=== PATIENT | male | born 1985 | race Caucasian/White ===

== ENCOUNTER 2024-08-29 15:27 | Emergency (ER) | payer OTHER, SELFPAY ==
--- OUTSIDE RECORDS SUMMARY | 2014-07-24 05:15 | XMS_ITS | Continuity of Care Document ---
Author Organization [facility] Address [address] [facility] [place] [address] Care Team Providers Care Dye Beck Reel Operator Name Role Phone Unavailable Unavailable Unavailable Allergies, Adverse Reactions, Alerts Substance Reaction Status Criticality No Known Allergies Active No Inform ation Medications Medication Instructions Dosage Effective Dates (start - stop) Status Comments albuterol sulfate HFA 90 mcg/actuation aerosol inhaler inhale 2 puff by inhalation route every 4 - 6 hours as needed - Active Advance Directives Directive Yes / No Effective Date File Name No Information Encounters Encounter Description Practice Location Reason(s) For Visit Diagnoses Date Provider Providers Copied on Encounter [facility] , [address] [place], [place], [phone], [facility] No Information 5 No Information Family History Family Member Type Diagnosis Age At Onset No Information Payers Payer name Insurance type Covered constitution party ID Authoriza tion(s) No Information Social History Type Description Quantity Date Captured Comments Alcohol Use Details No Caffeine Use Details Unknown Tobacco Use Status No Information Smoking Status No Information Sex Male Vital Signs Date / Time: Height Weight BMI Pulse Rate Blood Pressure Temperature Respiratory Rate Body Surface Area Head Circumference Head Circ. Percentile Wt./Bryan. Percentile BMI percentile Pulse Ox Inhaled Ox 10:16 AM 79 /min 151/101 mm[Hg] 98.70 F 16 /min 98 % Chief Complaint And Reason For Visit No Information Reason For Referral Reason For Referral No Information History Of Present Illness Encounter Date Complaint History Of Prese nt Illness No Information Functional Status Date Functional Assessmen t No Information Instructions Date Instruction Additional Infor mation No Information Assessments Type Assessment Date No Information Patient Care Teams Name Effective Dates (start - stop) Status Members No Information
--- OUTSIDE RECORDS SUMMARY | 2024-08-24 12:05 | XMS_ITS | Encounter Summary ---
Author Organization [facility] Address [address] [place] [address]. [place] [address] Phone Care Team Providers Care Bobcat Driver/Labor Name Role Phone Pcp, No Primary Care Provider Unavailabl e Reason for Visit * Reason Comments Fall Leg Injury Encounter Details Date Type Department Care Team (Late st Contact Info) Description 08/24/2024 12:05 PM CDT - 08/24/2024 3:04 PM CDT Emergency [facility] [place] [address] [place] [address] [id number] [place], [place] [id number] So Shipley MD [address] [place], [place] [id number] Laceration of left lower extremity, initial encounter Discharge Disposition: Discharged to home or self care Social History Tobacco Use Types Packs/Day Years Used Date Smoking Tobacco: Never Assessed Sex and Gender Information Value Date Recorded Sex Assigned at Not on file 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 Gender Identity Not on file Sexual Orientation Not on file Primary [place] Affiliation No [place] Affiliation documented as of this encounter Last Filed Vital Signs Vital Sign Reading Time Taken Comments Blood Pressure 142/74 08/24/2024 2:20 PM CDT Pulse 75 08/24/2024 2:20 PM CDT Temperature 36.4 C (97.6 F) 08/24/2024 12:09 PM CDT Respiratory Rate 18 08/24/2024 12:09 PM CDT Oxygen Saturation 95% 08/24/2024 2:20 PM CDT Inhaled Oxygen Concentration - - Weight - - Height - - Body Mass Index - - documented in this encounter Discharge Instructions * Discharge Instructions* Melissa Argueta MD - 08/24/2024 2:06 PM CDT You had a cut (laceration) repaired in the Emergency Department with 9 stitches. Please try to keep the wound clean and dry. For the next 2 days try to keep the wound covered with gauze or a bandage. You may apply antibacterial ointment such as bacitracin or neosporin if you want. You may shower and let water run over the wound, but try not to soak the wound in water, a bath tubs, hot tubs, or pool. Return for suture removal in 10-14 days. Return sooner if you notice increasing redness, pain, swelling, drainage, or if you have any fevers. These could be signs of an infection and you may need antibiotics. We made sure you are up to date on your tetanus immunization Your scar will continue to heal over the next 12 months, so be sure to cover your scar with sunscreen when outside during this time to improve healing. documented in this encounter Medications at Time of Discharge bacitracin zinc 500 unit/g externally ointment Please apply to wound with dressing changes. 28 g 08/24/2024 3:10 PM CDT 08/24/2024 acetaminophen (TYLENOL) 325 mg oral tablet Take 1-2 tablets (325-650 mg) by mouth every 4 hours as needed for Moderate Pain. 30 tablet 08/24/2024 3:10 PM CDT 08/24/2024 beclomethasone (QVAR) 80 mcg/act inhalation aerosol soln 1-2 Puffs by Inhalation route twice daily. 1 0 01/19/2008 albuterol (PROVENTIL;BRIANNA MEHREEN) 90 mcg/puff inhalation aerosol soln 1-2 Puffs by Inhalation route four times daily. 1 0 01/19/2008 oxyCODONE (ROXICODONE) 5 mg oral tablet Take 1 tablet (5 mg) by mouth every 4 hours as needed for Pain. 6 tablet 08/24/2024 3:10 PM CDT 08/24/2024 5 documented as of this encounter Procedure Notes * Angy Piper MD - 08/24/2024 2:05 PM CDTAssociated Order(s): Laceration Repair Laceration Repair Performed by: Angy Piper MD Authorized by: So Shipley MD Consent: Consent obtained: Verbal Consent given by: Patient Risks discussed: Infection, pain, need for additional repair, poor wound healing, poor cosmetic result and retained foreign body [place] protocol: Procedure explained and questions answered to patient or proxy's satisfaction: yes Test results available: yes Imaging studies available: yes Site/side marked: yes Immediately prior to procedure, a time out was called: yes Patient identity confirmed: Verbally with patient Anesthesia: Anesthesia method: Local infiltration Local anesthetic: Lidocaine 1% WITH epi (20ml) Laceration details: Location: Leg Leg location: L upper leg Length (cm): 12 Depth (mm): 15 Pre-procedure details: Preparation: Imaging obtained to evaluate for foreign bodies Exploration: Hemostasis achieved with: Direct pressure and epinephrine Imaging outcome: foreign body not noted Wound exploration: wound explored through full range of motion Wound extent: fascia violated Wound extent: no nerve damage noted, no tendon damage noted, no underlying fracture noted and no vascular damage noted Contaminated: yes Treatment: Amount of cleaning: Extensive Irrigation solution: Sterile saline Irrigation volume: 1L Irrigation method: Pressure wash Debridement: Minimal Layers/structures repaired: Deep subcutaneous Deep subcutaneous: Suture size: 2-0 Suture material: Vicryl Suture technique: Horizontal mattress Number of sutures: 2 Skin repair: Repair method: Sutures Suture size: 3-0 Suture material: Nylon Suture technique: Simple interrupted Number of sutures: 9 Approximation: Approximation: Loose Repair type: Repair type: Intermediate Post-procedure details: Dressing: Antibiotic ointment and adhesive bandage Procedure completion: Tolerated well, no immediate complications Angy Piper MD, 08/24/2024 2:04 PM Cosigned by So Shipley MD at 08/24/2024 4:04 PM CDT Associated attestation - So Shipley MD - 08/24/2024 4:04 PM CDT My signature attests that I was present for the carranza or critical portion of this procedure. I was immediately available or had arranged immediate staff availability for all the non-critical or non-keyportions of the entire procedure. So Shipley MD, 08/24/2024 4:04 PM documented in this encounter ED Notes * Latonya Mayes RN - 08/24/2024 3:00 PM CDT Patient discharged via ambulatory to home accompanied by . All discharge instructions includingnew medications and follow up appointments discussed with patient and verbalized understanding. * Melissa Argueta MD - 08/24/2024 12:09 PM CDT Images from the original note were not included. ED Provider Note Name: Feroz Boothe : 1985 Sex: male Patient Arrival Date and Time: 08/24/2024 12:05 PM TRIAGE NOTE Feroz Boothe presented to the emergency department with mechanical fall onto rebar. Openwound to L thigh. EMS states pt is vitally stable, received fentanyl. HPI Feroz Boothe is a 39 y.o. male with a PMHx of GERD, asthma, and lung abscess/empyema whopresented to the emergency department after a fall onto a rebar resulting in a penetrating injury to the L lateral thigh. He reports he was at work and fell into a pit with rebar sticking out, landedon the rebar and it held up his weight until he was pulled back up. Otherwise feels well, fentanyl given when with EMS. Patient is unsure when he got his last tetanus shot. No numbness or tingling orsensory changes. He feels comfortable for now and has no other concerns or symptoms. ROS Negative unless otherwise stated in HPI SOCIAL HISTORY EtOH: none reported Tobacco: none reported Drug use: none reported PHYSICAL EXAM BP 134/90 (Cuff Location: Left Arm, Patient Position: Lying Down) Pulse 57 Temp 36.4 ??C (97.6 ??F) Resp 18 SpO2 95% General: Laying in bed, no acute distress Neuro: Awake and alert. Sensation intact and symmetric in bilateral lower extremities. Can move toes in both feet Cardiac: Normal rate, normotensive, no murmurs, rubs, or gallops. DP pulses intact to palpation bilaterally Respiratory: No acute respiratory distress, saturating well on room air GI: Abdomen soft, non-tender, non-distended, non-peritonitic. MSK: ~15-20cm deep open wound to L thigh, dressing covering with no strikethrough MDM / ED Course ED Course as of 08/24/24 1317 TueAugust 24, 2024 1316 Tetanus booster ordered. XR obtained with no evidence of debris. Planning to wash out and close wound. Patient presents with acute open L lateral thigh wound (photo above). Pulses intact, motor and sensory function normal. Patient was unsure when his last Tetanus booster was, so Tetanus booster was given. His wound was thoroughly washed and sutured (please see separate procedure note). It was closedwith 9 sutures which will need to be removed in 10-14 days. Discussed return precautions with patient. Answered all questions. Patient sent with bacitracin and gauze/tape for daily dressing changes. Work note provided. DISPOSITION Patient was determine to be safe for discharge. Return to ED precautions discussed. 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 Denies hitting his head or back, denies LOC and does not take any blood thinners. documented in this encounter Miscellaneous Notes * ED Faculty Note - So Shipley MD - 08/24/2024 12:08 PM CDT Images from the original note were not included. ED Faculty Attestation and Note Feroz Boothe : 1985 Sex: male Patient Arrival Date and Time: 08/24/2024 12:05 PM FACULTY ATTESTATION I So Shipley MD, personally saw the patient, performed critical or carranza portions of the service, and discussed the care with the resident MDM / ED Course Feroz Boothe presented to the emergency department with mechanical fall onto rebar. Openwound to L thigh. EMS states pt is vitally stable, received fentanyl. On exam, large penetrating wound to lateral L thigh. No active bleeding. There is no exam findings to suggest neurovascular injury. Pt has full leg ROM. Wound is not near joint. X-ray obtained and neg for fracture or FB. [place]ough[place] out of leg performed. Considered risk/benefit of closure of wound. Given wound is gaping and large, we felt benefit of loose closure outweighed risk of infection. Discussed signs of infection. Given pain control and bacitracin prescriptions for home. Pt will follow up for suture removal. He was ambulatory at time of discharge. ED Course as of 08/24/24 1538 TueAugust 24, 2024 1340 No FB or fracture on my review of femur Xray IMPRESSION 1. Laceration of left lower extremity, initial encounter So Shipley MD, 08/24/2024 3:38 PM documented in this encounter Plan of Treatment Not on file documented as of this encounter Procedures Procedure Name Priority Date/Time Associated Diagnosis Comments LACERATION REPAIR Routine 08/24/2024 2:0 5 PM CDT XR FEMUR LEFT AP + LAT* Routine 08/24/2024 1:01 PM CDT documented in this encounter Results * Laceration Repair (08/24/2024 2:05 PM CDT) Narrative So Shipley MD - 08/24/2024 2:05 PM CDT So Shipley MD 08/24/2024 4:04 PM Laceration Repair Performed by: Angy Piper MD Authorized by: So Shipley MD Consent: Consent obtained: Verbal Consent given by: Patient Risks discussed: Infection, pain, need for additional repair, poor wound healing, poor cosmetic result and retained foreign body [place] protocol: Procedure explained and questions answered to patient or proxy's satisfaction: yes Test results available: yes Imaging studies available: yes Site/side marked: yes Immediately prior to procedure, a time out was called: yes Patient identity confirmed: Verbally with patient Anesthesia: Anesthesia method: Local infiltration Local anesthetic: Lidocaine 1% WITH epi (20ml) Laceration details: Location: Leg Leg location: L upper leg Length (cm): 12 Depth (mm): 15 Pre-procedure details: Preparation: Imaging obtained to evaluate for foreign bodies Exploration: Hemostasis achieved with: Direct pressure and epinephrine Imaging outcome: foreign body not noted Wound exploration: wound explored through full range of motion Wound extent: fascia violated Wound extent: no nerve damage noted, no tendon damage noted, no underlying fracture noted and no vascular damage noted Contaminated: yes Treatment: Amount of cleaning: Extensive Irrigation solution: Sterile saline Irrigation volume: 1L Irrigation method: Pressure wash Debridement: Minimal Layers/structures repaired: Deep subcutaneous Deep subcutaneous: Suture size: 2-0 Suture material: Vicryl Suture technique: Horizontal mattress Number of sutures: 2 Skin repair: Repair method: Sutures Suture size: 3-0 Suture material: Nylon Suture technique: Simple interrupted Number of sutures: 9 Approximation: Approximation: Loose Repair type: Repair type: Intermediate Post-procedure details: Dressing: Antibiotic ointment and adhesive bandage Procedure completion: Tolerated well, no immediate complications So Shipley MD PROCEDURES Final Result * XR FEMUR LEFT AP + LAT* (08/24/2024 1:01 PM CDT) Anatomical Region Laterality Modality Upper Leg Computed Radiogr aphy 08/24/2024 1:02 PM CDT Impressions 08/24/2024 1:03 PM CDT Impression: Soft tissue injury. No fracture or radiopaque foreign body. Reading Radiologist: Amilcar Stark 08/24/2024 1:03 PM CDT Technique: XR FEMUR LEFT AP + LAT* Indication: open wound from rebar, check for debris Comparison: None Findings: No fracture or subluxation. No radiopaque foreign body. Mild degenerative changes in the left knee. There is a large soft tissue wound in the mid thigh. This is best seen on the lateral view. Procedure Note Amilcar Stark MBBS - 08/24/2024 Technique: XR FEMUR LEFT AP + LAT* Indication: open wound from rebar, check for debris Comparison: None Findings: No fracture or subluxation. No radiopaque foreign body. Milddegenerative changes in the left knee. There is a large soft tissue wound in the mid thigh. This is best seen onthe lateral view. IMPRESSION Impression: Soft tissue injury. No fracture or radiopaque foreign body. Reading Radiologist: Amilcar Stark us So Shipley MD RAD XRAY Final Result documented in this encounter Visit Diagnoses Diagnosis Laceration of left lower extremity, initial encounter- Primary documented in this encounter Administered Medications Inactive Administered Medications - up to 3 most recent administrations Medication Order MAR Action Action Date Dose Rate Site HYDROmorphone PF (DILAUDID) 1 mg/mL injection 0.5 mg 0.5 mg, IV Push, ONE TIME, 1 dose, On Tue08/24/24 at 1310 Given 08/24/2024 1:13 PM CDT 0.5 mg documented in this encounter Active and Recently Administered Medications Times are shown in CDT. Scheduled Medication Order 08/22/2024 08/23/2024 08/24/2024 HYDROmorphone PF (DILAUDID) 1 mg/mL injection 0.5 mg (COMPLETED) 0.5 mg, IV Push, ONE TIME, 1 dose, On Tue08/24/24 at 1310 1313 (Given - Provid er: Latonya Mayes RN) documented in this encounter Care Teams Bobcat Driver/Labor Relationship Specialty Start Date End Date Pcp, [place] [address] PCP - General 01/19/08 documented as of this encounter
[2024-08-29 15:51] VITALS: BP 162/107; PULSE 70; RESP 20; TEMP 35.9; O2SAT 98; BMI 40.0
--- NOTE | 2024-08-29 16:27 | ED.GENADULT ---
HPI - General Adult General Chief complaint: Extremity Pain/Injury, Lower Stated complaint: L leg infection Time Seen by Provider: 08/29/24 16:26 History of Present Illness HPI narrative: Pt reports last Tuesday fell through a hole at work, impaled leg on rebar through Left thigh. Was treated at [facility] [place]. Took bandage off today, noted green purulent discharge on bandage and oozing from wound. Concerned of infection. Pain worse in this area earlier felt like ripping. Pain currently 10/04. 39-year-old man presenting to the emergency department with concern of infection in his left thigh. Seen 5 days ago at [facility] following an injury at work where he was impaled by a piece of rebar in his left thigh. Removing the bandage today noting some green discharge in concerned about infection. Increasing pain as well. No fever. Does need more for pain than ibuprofen or acetaminophen; had been initially treated with Percocet. Related Data Home Medications ?Medication ?Instructions ?Recorded ?Confirmed albuterol sulfate PO 08/29/24 fluticasone propion-salmeterol inhalation 08/29/24 Allergies Allergy/AdvReac Type Severity Reaction Status Date / Time No Known Drug Allergies Allergy Verified 08/29/24 15:55 Review of Systems Status of ROS: Reports: 6 or more systems reviewed and unremarkable except as noted in History and below [facility] Social History Non-prescribed substance use: denies use Exam Narrative: Exam Narrative: Pleasant. NAD. Well muscled. Is not tachycardic. Blood pressure little bit elevated noted on initial vitals. Examination left thigh in question does show large v-shaped laceration partially through some tattoo in the area. There is mild erythema along the wound edges. He is sensitive to touch here. On the dressing that they have along it as light greenish yellow discharge. I do not appreciate any fluid collection or indication of abscess otherwise. Const: Vital Signs, click to edit/add: Vital Signs - 24 hr 08/29/24 15:51 Temperature 96.7 F L Pulse Rate [Pulse Oximeter] 70 Respiratory Rate 20 Blood Pressure [Ri ght Upper Arm] 162/107 H Pulse Oximetry 98 Oxygen Delivery Me thod Room Air Documenting provider has reviewed patient's vital signs: yes Course Vital Signs Vital signs: Initial Vital Signs Temperature 96.7 F L 08/29/24 15:51 Temperature Source Temporal Artery Scan 08/29/24 15:51 Pulse Rate 70 08/29/24 15:51 Respiratory Rate 20 08/29/24 15:51 Blood Pressure 162/107 H 08/29/24 15:51 Blood Pressure Mean 125 H 08/29/24 15:51 Blood Pressure Position Sitting 08/29/24 15:51 Pulse Oximetry 98 08/29/24 15:51 Oxygen Delivery Method Room Air 08/29/24 15:51 Vital Signs Temperature 96.7 F L 08/29/24 15:51 Pulse Rate 70 08/29/24 15:51 Respiratory Rate 20 08/29/24 15:51 Blood Pressure 162/107 H 08/29/24 15:51 Pulse Oximetry 98 08/29/24 15:51 Oxygen Delivery Method Room Air 08/29/24 15:51 Temperature 96.7 F L 08/29/24 15:51 Pulse Rate 70 08/29/24 15:51 Respiratory Rate 20 08/29/24 15:51 Blood Pressure 162/107 H 08/29/24 15:51 Pulse Oximetry 98 08/29/24 15:51 Oxygen Delivery Method Room Air 08/29/24 15:51 Medications Administered Medications: Discontinued Medications Generic Name Dose Route Start Last Admin Trade Name Kalebq PRN Reason Stop Dose Admin Ceftriaxone Sodium 1 gm/ 100 mls @ 200 mls/hr 08/29/24 16:44 08/29/24 17:46 Sodium Chloride IVPB 08/29/24 16:45 Infused ONCE ONE Infusion Ketorolac Tromethamine 30 mg 08/29/24 17:10 08/29/24 17:18 Ketorolac 30 Mg/Ml Inj IVP 08/29/24 17:11 30 mg ONCE ONE Administration Medical Decision Making MDM Narrative Medical decision making narrative: Does seem to have some localized inflammatory reaction. I am not convinced that the drainage represents marked infectious change. Perhaps increase in pain is more concerning. Will check labs for baseline in case this gets much worse. Anticipate covering with antibiotics though regardless. This is a large wound and he is quite worried about getting an infection here. White count is not elevated nor is CRP. Did give ketorolac and a g of Rocephin in the emergency department. See patient discharge plan for further discussion Stay well-hydrated. Watch for marked spread of this redness, marked swelling or significant increase in pain, fever. Your received a dose of Rocephin here in the emergency department. Your labs looked good. Initiating continued course of cephalexin as an antibiotic and also from [facility] per discussion some [place] if needed. Lab Data Lab results reviewed: Yes I reviewed the patient's lab results Labs: Lab Results 08/29/24 Range/Units 17:14 WBC 9.17 (4.50-11.00) K/uL RBC 4.91 (4.30-5.90) m/uL Hgb 14.4 (13.5-17.5) gm/dL Hct 43.9 (37.0-53.0) % MCV 89 (80-100) fL MCH 29 (26-34) pg MCHC 33 (32-36) gm/dL RDW Coeff of [place] 11.7 (11.5-15.5) % Plt Count 295 (140-440) K/uL Neut % (Auto) 57.2 (42.0-72.0) % Lymph % (Auto) 23.2 (20-44) % Dillon % (Auto) 13.6 H (0.0-11.0) % Eos % (Auto) 4.6 (0.0-7.0) % Baso % (Auto) 0.5 (0.0-3.0) % Neut # (Auto) 5.24 (1.7-7.0) K/uL Lymph # (Auto) 2.13 (0.90-2.90) K/uL Dillon # (Auto) 1.20 H (0.00-0.90) K/UL Eos # (Auto) 0.42 (0.00-0.50) K/uL Baso # (Auto) 0.05 (0.00-0.30) K/uL Abs Immat Gran (auto) 0.08 (0.00-0.30) K/uL Imm/Tot Granulo (auto) 0.9 % C-Reactive Protein 0.9 (0.5-1.0) mg/dL Discharge Plan Discharge Clinical Impression: Visit for wound check Patient Disposition: Home w/ Parent or Adult Condition: Stable Additional Instructions: Stay well-hydrated. Watch for marked spread of this redness, marked swelling or significant increase in pain, fever. Your received a dose of Rocephin here in the emergency department. Your labs looked good. Initiating continued course of cephalexin as an antibiotic and also from [facility] per discussion some [place] if needed. Prescriptions: No Action albuterol sulfate PO fluticasone propion-salmeterol [Advair Diskus] inhalation Follow Up/Referrals: Provider,Not a Local [Primary Care Provider, Family Practice] Stand Alone Forms: [employer] Info Instructions
[2024-08-29] MEDS: cefTRIAXone 1 GM in 0.9 % SODIUM CHLORIDE Mini-bag 100 ML IVPB (16:58)
--- OUTSIDE RECORDS SUMMARY | 2024-08-29 17:02 | XMS_ITS | Encounter Summary ---
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
--- OUTSIDE RECORDS SUMMARY | 2024-08-29 17:02 | XMS_ITS | Clinical Summary ---
Author Organization [facility] Address [address] [place], [place] [address] [address] Phone Care Team Providers Care Institutional Asset Manager Name Role Phone Pcp, No Primary Care Provider Unavailabl e Source Comments [employer] is fully rolled out on [employer]. Last update 08/30/08.[facility] Allergies No known active allergies Medications * This document contains information received from the source organization and may not represent a complete record from that organization. * Be aware that medications may not be up to date as of this document. Always verify current medications with patient. beclomethasone (QVAR) 80 mcg/act inhalation aerosol soln 1-2 Puffs by Inhalation route twice daily. 1 0 8 Active albuterol (PROVENTIL;VENT DEMETRIA) 90 mcg/puff inhalation aerosol soln 1-2 Puffs by Inhalation route four times daily. 1 0 8 Active bacitracin zinc 500 unit/g externally ointment Please apply to wound with dressing changes. 28 g 08/24/2024 3:10 PM CDT 5 Active acetaminophen (TYLENOL) 325 mg oral tablet Take 1-2 tablets (325-650 mg) by mouth every 4 hours as needed for Moderate Pain. 30 tablet 08/24/2024 3:10 PM CDT 5 Active oxyCODONE (ROXICODONE) 5 mg oral tablet Take 1 tablet (5 mg) by mouth every 4 hours as needed for Pain. 6 tablet 08/24/2024 3:10 PM CDT 5 08/28/19 25 Active Problems Problem Noted Date Diagnosed Date Kidney stones Encounters * This document contains information received from the source organization and may not represent a complete record from that organization. Date Type Department Care Team Description 08/28/2024 Telephone [facility] [place] Emergency Department [address] [place] [address] Syeda Kolb RN 08/24/2024 12:05 PM CDT - 08/24/2024 3:04 PM CDT Emergency [facility] [place] Emergency Department [address] [place] [address] So Shipley MD Laceration of left lower extremity, initial encounter Discharge Disposition: Discharged to home or self care 08/24/2024 Travel from Last 3 Months Immunizations Immunization Administration Dates Next Due Tetanus Toxoid, Reduced Diph theroid Toxoid Acellular Pertussis 08/24/2024 Social History Tobacco Use Types Packs/Day Years Used Date Smoking Tobacco: Never Assessed Sex and Gender Information Value Date Recorded Sex Assigned at Not on file 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 Gender Identity Not on file Sexual Orientation Not on file Primary Poarch Affiliation No Poarch Affiliation Last Filed Vital Signs Vital Sign Reading Time Taken Comments Blood Pressure 142/74 08/24/2024 2:20 PM CDT Pulse 75 08/24/2024 2:20 PM CDT Temperature 36.4 C (97.6 F) 08/24/2024 12:09 PM CDT Respiratory Rate 18 08/24/2024 12:09 PM CDT Oxygen Saturation 95% 08/24/2024 2:20 PM CDT Inhaled Oxygen Concentration - - Weight 108.9 kg (240 lb) 01/19/2008 2:05 AM CDT Height - - Body Mass Index - - Plan of Treatment Health Maintenance Due Date Last Done Comments Asthma Action Plan 1986 Asthma Control Test 1986 Dental Oral Exam 1986 Dental Prophylaxis 1986 Dental X-Ray: Bitewings 1986 Periodontal Maintenance 02/05/2000 HIV Screening 2001 Imm: HepB (1 of 3 - 19+ 3-do se series) 2005 Imm: COVID-19 ( season) 2023 Imm: Flu (#1) 11/27/2023 03/12/2008 Imm: DTaP/Tdap (2 - Td or Tdap) 08/24/2034 Imm: Zoster (1 of 2) 02/05/2036 Imm: HPV Aged Out No longer eligi ble based on patient's age to complete this topic Imm: HepA Aged Out No longer eligi ble based on patient's age to complete this topic Imm: Hib Aged Out No longer eligi ble based on patient's age to complete this topic Imm: Meningitis Aged Out No longer el igible based on patient's age to complete this topic Imm: Pneumonia Peds or At-Ri sk less than 50 years Aged Out No longer eligible b ased on patient's age to complete this topic Procedures Procedure Name Priority Date/Time Associated Diagnosis Comments LACERATION REPAIR Routine 08/24/2024 2:0 5 PM CDT XR FEMUR LEFT AP + LAT* Routine 08/24/2024 1:01 PM CDT from Last 3 Months Results * Laceration Repair (08/24/2024 2:05 PM CDT) Narrative So Shipley MD - 08/24/2024 2:05 PM CDT So Shipley MD 08/24/2024 4:04 PM Laceration Repair Performed by: Angy Piper MD Authorized by: So Shipley MD Consent: Consent obtained: Verbal Consent given by: Patient Risks discussed: Infection, pain, need for additional repair, poor wound healing, poor cosmetic result and retained foreign body Carleton protocol: Procedure explained and questions answered to [...] Procedure completion: Tolerated well, no immediate complications us So Shipley MD PROCEDURES Final Result * XR FEMUR LEFT AP + LAT* (08/24/2024 1:01 PM CDT) Anatomical Region Laterality Modality Upper Leg Computed Radiogr aphy 08/24/2024 1:02 PM CDT Impressions 08/24/2024 1:03 PM CDT Impression: Soft tissue injury. No fracture or radiopaque foreign body. Reading Radiologist: Amilcar Stark Narrative 08/24/2024 1:03 PM CDT Technique: XR FEMUR [...] So Shipley MD RAD XRAY Final Result from Last 3 Months Care Teams Institutional Asset Manager Relationship Specialty Start Date End Date Pcp, [place] [address] PCP - General 01/19/08
--- OUTSIDE RECORDS SUMMARY | 2024-08-29 17:02 | XMS_ITS | Continuity of Care Document ---
Author Organization [facility] Address [address] [place] [address] Assessment No assessment recorded. Plan of Treatment Reminders Order Date Submit Date Provider Last Modified By Organization Details Last Modified Time Details Appointments None record ed. Lab None record ed. Referral None record ed. Procedures None record ed. Surgeries None record ed. Imaging None record ed. Medication Orders None record ed. Patient TargetsNo targets recorded. Patient InstructionsNo instructions recorded. Reason for Referral None Reported. 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 Medical Equipment None Reported. Vitals None Recorded Social History None recorded. Functional Status None recorded. Mental Status None recorded. Family History Nothing Reported. Medical History No medical history recorded. Past Encounters Encounter ID Performer Location Encounter Start Date Encounter Closed Date Diagnosis/Indication Diagnosis SNOMED-CT Code Diagnosis ICD10 Code Diagnosis Note [id number] Kendall Rehmanmaria e [facility] [address] [place] [address] 08/15/2024 18:50:46 08/15/2024 18:59:02 Thoracic segmental dysfunction 474525727 M99.02 Health Concerns Section Related Observation LastModified by Organization Detai ls LastModified Time None Recorded Concern Status LastModified by Organization Details LastModified Time None Recorded Payers Encounter Date Sequence Insurance Name Policy Number Policy Vega Covered Member ID Vega Member ID Guarantor Name 08/15/2024 1 *SELF PAY* Shashank Boothe
--- OUTSIDE RECORDS SUMMARY | 2024-08-29 17:02 | XMS_ITS | Data Portability ---
Author Organization [facility], auto[facility] - E [facility] DREDGER [facility] Address [address] [place] [address] Assessment No assessment recorded. Plan of Treatment [...] Organization Details Recorded Time Thoracic segmental dysfunction 638797499 Active 2024 [place] [address], [place], [address] , [facility] 18:58:18 Problem Notes None recorded. Medical Equipment None Reported. Vitals None Recorded Social History None recorded. Functional Status None recorded. Mental Status None recorded. Family History Nothing Reported. Medical History No medical history recorded. Past Encounters Encounter ID Performer Location Encounter Start Date Encounter Closed Date Diagnosis/Indication Diagnosis SNOMED-CT Code Diagnosis ICD10 Code Diagnosis Note [id number] Kendall Rehmandimitrydaquan [facility] [address] [place] [address] 08/15/2024 18:50:46 08/15/2024 18:59:02 Thoracic segmental dysfunction 109550314 M99.02 Health Concerns Section Related Observation LastModified by Organization Detai ls LastModified Time None Recorded Concern Status LastModified by Organization Details LastModified Time None Recorded Advance Directives Directive None Recorded Payers Encounter Date Sequence Insurance Name Policy Number Policy Vega Covered Member ID Vega Member ID Guarantor Name 08/15/2024 1 *SELF PAY* Shashank Boothe
--- OUTSIDE RECORDS SUMMARY | 2024-08-29 17:03 | XMS_ITS | Referral Summary ---
Author Organization [facility] Address [address] [place] [place] [address] Phone Care Team Providers Care Punch Operator Name Role Phone Pcp, No Primary Care Provider Unavailabl e Source Comments [employer] is fully rolled out on [employer]. Last update 08/30/08.[employer] Encounters * This document contains information received from the source organization and may not represent a complete record from that organization. Date Type Department Care Team Description 08/28/2024 Telephone [facility] Emergency Department [address] [place] [address] Syeda Kolb RN 08/24/2024 Travel 08/24/2024 12:05 PM CDT - 08/24/2024 3:04 PM CDT Emergency [facility] Emergency Department [address] [place] [address] So Shipley MD Laceration of left lower extremity, initial encounter Discharge Disposition: Discharged to home or self care from Last 3 Months Allergies No known active allergies Medications * [...] changes. 28 g 08/24/2024 3:10 PM CDT Active acetaminophen (TYLENOL) 325 mg oral tablet Take 1-2 tablets (325-650 mg) by mouth every 4 hours as needed for Moderate Pain. 30 tablet 08/24/2024 3:10 PM CDT Active oxyCODONE (ROXICODONE) 5 mg oral tablet Take 1 tablet (5 mg) by mouth every 4 hours as needed for Pain. 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
--- OUTSIDE RECORDS SUMMARY | 2024-08-29 17:03 | XMS_ITS | Encounter Summary ---
Author Organization [facility] Address [address] 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 A: No follow up scheduled. No pcp on file. R/P: Mychart message sent to patient advising they would need an appointment to discuss. Pending call back. documented in this encounter Plan of Treatment Not on file documented as of this encounter Visit Diagnoses Not on filedocumented in this encounter Care Teams Information Technology Auditor Relationship Specialty Start Date End Date Pcp, No [facility] [place] [address] PCP - General 01/19/08 documented as of this encounter
[2024-08-29] MEDS: KETOROLAC 30 MG/ML inj IVP (17:18)
[2024-08-29 17:20] LABS: Basophils Absolute Auto 0.05 K/uL (0.00-0.30); Basophils Percent Auto 0.5 % (0.0-3.0); Eosinophils Absolute Auto 0.42 K/uL (0.00-0.50); Eosinophils Percent Auto 4.6 % (0.0-7.0); Hematocrit 43.9 % (37.0-53.0); Hemoglobin* 14.4 gm/dL (13.5-17.5); Immature Granulocytes Abs Auto 0.08 K/uL (0.00-0.30); Immature Granulocytes Pct Auto 0.9 %; Lymphocytes Absolute Auto 2.13 K/uL (0.90-2.90); Lymphocytes Percent Auto 23.2 % (20-44); Mean Corpuscular HGB Conc 33 gm/dL (32-36); Mean Corpuscular Hemoglobin 29 pg (26-34); Mean Corpuscular Volume 89 fL (80-100); Monocytes Percent Auto 13.6 % (0.0-11.0); Neutrophils Absolute Auto 5.24 K/uL (1.7-7.0); Neutrophils Percent Auto 57.2 % (42.0-72.0); Platelet Count* 295 K/uL (140-440); RDW Coefficient of Variation % 11.7 % (11.5-15.5); Red Blood Count 4.91 m/uL (4.30-5.90); White Blood Count* 9.17 K/uL (4.50-11.00)
[2024-08-29 17:23] LABS: Slide Review Reflex No
[2024-08-29 17:43] LABS: C Reactive Protein* 0.9 mg/dL (0.5-1.0)
== END 2024-08-29 18:24 | disposition home or self-care (01) ==
PROVIDERS: Emergency Provider Family Medicine
DX: S71.102A Unspecified open wound, left thigh, initial encounter (principal); W22.8XXA Striking against or struck by other objects, initial encounter; Z48.00 Encounter for change or removal of nonsurgical wound dressing
CPT/HCPCS: 36415; 85025; 86140; 96365; 96375; 99283; 99284; J0696; J1885

== ENCOUNTER 2025-02-02 10:14 | Emergency (ER) | payer SELFPAY ==
--- OUTSIDE RECORDS SUMMARY | 2025-02-02 10:17 | XMS_ITS | Data Portability ---
Author Organization [facility] e, autoContract - E [facility] Address [address] [place] [address] Assessment No assessment recorded. Plan of Treatment [...] Organization Details Recorded Time Thoracic segmental dysfunction [id number] Active 2024 Kendall [place], [place] [address], [place], [address] , [facility] 18:58:18 Problem Notes None recorded. Medical Equipment None Reported. Vitals None Recorded Social History None recorded. Functional Status None recorded. Mental Status None recorded. Family History Nothing Reported. Medical History No medical history recorded. Past Encounters Encounter ID Performer Location Encounter Start Date Encounter Closed Date Diagnosis/Indication Diagnosis SNOMED-CT Code Diagnosis ICD10 Code Diagnosis IMO Codes Diagnosis Note [id number] Kendall Wilson Shell [facility] [address] [place] [address] 08/15/2024 18:50:46 08/15/2024 18:59:02 Thoracic segmental dysfunction 493988301 M99.02 [id number] Health Concerns Section Related Observation LastModified by Organization Detai ls LastModified Time None Recorded Concern Status LastModified by Organization Details LastModified Time None Recorded Advance Directives Directive None Recorded Payers Insurance Date Sequence Insurance Name Policy Number Policy Vega Covered Member ID Vega Member ID Guarantor Name 08/15/2024 1 *SELF PAY* Shashank Boothe
--- OUTSIDE RECORDS SUMMARY | 2025-02-02 10:17 | XMS_ITS | Clinical Summary ---
Author Organization [facility] Address [address] [place] [address] Care Team Providers Care Entry Level Software Developer Name Role Phone Pricilla Sauceda MD Primary Care Provider [phone] Allergies No known active allergies Medications ALBUTEROL INHL Inhale as needed. Active olmesartan (BENICAR) 20 mg oral TabIndications:P rimary hypertension Take 1 tablet (20 mg) by mouth once daily. 30 tablet 3 5 Active Additional Information Patient not taking.Reported on 11/07/2024 fluticasone 100 mcg-salmeterol 50 mcg (ADVAIR DISKUS) 100-50 mcg/dose Inhl DsDv diskus inhalerIndicatio ns:Moderate persistent asthma without complication Inhale 1 puff twice a day. 69 each 6 5 Active SUMAtriptan succinate (IMITREX) 50 mg oral tabletIndication s:Migraine without aura and without status migrainosus, not intractable Take 1 tablet (50 mg) by mouth as directed. May repeat after two hours. Maximum dose 200 mg/24 hours. 9 tablet 1 5 Active albuterol HFA (PROVENTIL;BRIANNA MEHREEN HFA) 90 mcg/actuation Inhl inhaler Inhale 2 puffs every 4 (four) hours as needed for shortness of breath or wheezing. 18 g 3 5 Active Active Problems Problem Noted Date Diagnosed Date Primary hypertension 07/04/2024 Substance use disorder 07/04/2024 Hyperlipidemia, unspecified hyperlipidemia type 07/04/2024 Encounters Date Type Department Care Team Description 11/15/2024 Travel 11/12/2024 Travel 11/07/2024 1:00 PM CDT Office Visit [facility] [address] [place] [address] SYLVIE MONTES [id number] Pricilla Sauceda MD Migraine without aura and without status migrainosus, not intractable (Primary Dx); Moderate persistent asthma without complication; Primary hypertension; Pain of left lower extremity 11/07/2024 Travel from Last 3 Months Immunizations Immunization Administration Dates Next Due Tdap 08/24/2024 Social History Tobacco Use Types Packs/Day Years Used Date Smoking Tobacco: Never Smokeless Tobacco: Never Tobacco Cessation:Counseling Given: Not Answered Alcohol Use Standard Drinks/Week Comments Not Currently 0 (1 standard drink = 0.6 oz pur e alcohol) PHQ-2 Answer Date Recorded PHQ2 Total 0 07/04/2024 Sex and Gender Information Value Date Recorded Sex Assigned at Not on file Legal Sex Male 11:50 AM CDT Gender Identity Not on file Sexual Orientation Not on file Last Filed Vital Signs Vital Sign Reading Time Taken Comments Blood Pressure 134/92 11/07/2024 1:23 PM CDT Pulse 75 11/07/2024 12:44 PM CDT Temperature 36.8 C (98.3 F) 11/07/2024 12:44 PM CDT Respiratory Rate - - Oxygen Saturation 97% 11/07/2024 12:44 PM CDT Inhaled Oxygen Concentration - - Weight 133.6 kg (294 lb 8 oz) 11/07/2024 12:44 P M CDT Height 180.3 cm (5' 11) 11/07/2024 12:44 PM CDT Body Mass Index 41.07 11/07/2024 12:44 PM CDT Plan of Treatment Health Maintenance Due Date Last Done Comments Pneumococcal Vaccine (1 of 2 - PCV) 2005 HPV Vaccine (1 - 3-dose SCDM series) 2013 COVID-19 Vaccine ( - 2023-2 5 season) 2024 Influenza Vaccine (#1) 2024 Anxiety Screening (RALF-2) 07/04/2025 07/04/2024 Depression Assessment (PHQ-2) 07/04/2025 07/04/2024 Lipid Screening 07/04/2025 07/04/2024 Diabetes Screening 07/05/2027 07/04/2024, 07/04/2024 Adult Tetanus Booster 08/24/2034 08/24/2024 RSV Vaccines (1 - 1-dose 75+ series) 2061 Hepatitis C Screening Completed 07/04/2024 Meningococcal B Vaccine Aged Out No l onger eligible based on patient's age to complete this topic Procedures Procedure Name Priority Date/Time Associated Diagnosis Comments COMPREHENSIVE METABOLIC PANEL 14 ([facility]) Routine 07/04/2024 10:15 AM CDT Primary hypertension HCV ANTIBODY ([facility]) Routine 07/04/2024 10:15 AM CDT Need for hepatitis C screening test LIPIDS+LDL/HDL RATIO ([facility]) Routine 07/04/2024 10:15 AM CDT Hyperlipidemia, unspecified hyperlipidemia type from Last 3 Months or Most Recently Relevant to Health Maintenance Results * (ABNORMAL) LIPIDS+LDL/HDL RATIO ([facility]) (07/04/2024 10:15 AM CDT) Cholesterol ([facility]) 208(H) 100 - 199 mg/dL 07/05/2024 7:10 AM CDT [facility] Triglycerides ([facility]) 246(H) 0 - 149 mg/dL 07/05/2024 7:10 AM CDT [facility] HDL Cholesterol ([facility]) 43 >39 mg/dL 07/05/2024 7:10 AM CDT [facility] VLDL Cholesterol Yogesh ([facility]) 43(H) 5 - 40 mg/dL 07/05/2024 7:10 AM CDT [facility] LDL Cholesterol Calc - NIH ([facility]) 122(H) 0 - 99 mg/dL 07/05/2024 7:10 AM CDT [facility] LDL/HDL Ratio ([facility]) 2.8 0.0 - 3.6 ratio 07/05/2024 7:10 AM CDT [facility] Comment: LDL/HDL Ratio Men Women 1/2 Avg.Risk 1.0 1.5 Avg.Risk 3.6 3.2 2X Avg.Risk 6.2 5.0 3X Avg.Risk 8.0 6.1 Blood Venipuncture / Unknown 07/04/2024 10:15 AM CDT 07/04/2024 10:15 AM CDT Narrative [facility] - 07/05/2024 7:10 AM CDT Performed at: [address] [id number] [employer] Professor: Eric Winkler MD, Phone: [phone] Pricilla Sauceda MD [facility] ORDERABLES Final Resu lt Performing Organization Address [facility] Co de Phone Number [facility] [address] [place] [address] * HCV ANTIBODY ([facility]) (07/04/2024 10:15 AM CDT) Hepatitis C Virus Antibody ([facility]) Non Reactive Non Reactive 07/05/2024 9:09 AM CDT [facility] Comment: HCV antibody alone does not differentiate between previously resolved infection and active infection. Equivocal and Reactive HCV antibody results should be followed up with an HCV RNA test to support the diagnosis of active HCV infection. Blood Venipuncture / Unknown 07/04/2024 10:15 AM CDT 07/04/2024 10:[address] [facility] - 07/05/2024 9:09 AM CDT Performed at: [address] [id number] [employer] Professor: Eric Winkler MD, Phone: [phone] us Pricilla Sauceda MD [facility] ORDERABLES Final Resu lt Performing Organization Address [facility] Co de Phone Number [facility] [address] [place] [address] * (ABNORMAL) COMPREHENSIVE METABOLIC PANEL 14 ([facility]) (07/04/2024 10:15 AM CDT) Glucose ([facility]) 75 70 - 99 mg/dL 07/05/2024 7:10 AM CDT [facility] BUN ([facility]) 20 6 - 20 mg/dL 07/05/2024 7:10 AM CDT [facility] Creatinine ([facility]) 0.95 0.76 - 1.27 mg/dL 07/05/2024 7:10 AM CDT [facility] eGFR ([facility]) 105 >59 mL/min/1.7 3 07/05/2024 7:10 AM CDT [facility] BUN/Creatinine Ratio ([facility]) 21(H) 9 - 20 07/05/2024 7:10 AM CDT [facility] Sodium ([facility]) 135 134 - 144 mmol/L 07/05/2024 7:10 AM CDT [facility] Potassium ([facility]) 4.4 3.5 - 5.2 mmol/L 07/05/2024 7:10 AM CDT [facility] Chloride ([facility]) 100 96 - 106 mmol/L 07/05/2024 7:10 AM CDT [facility] Carbon Dioxide ([facility]) 21 20 - 29 mmol/L 07/05/2024 7:10 AM CDT [facility] Calcium ([facility]) 9.5 8.7 - 10.2 mg/dL 07/05/2024 7:10 AM CDT [facility] Protein Total ([facility]) 7.2 6.0 - 8.5 g/dL 07/05/2024 7:10 AM CDT [facility] Albumin ([facility]) 4.3 4.1 - 5.1 g/dL 07/05/2024 7:10 AM CDT [facility] Globulin Total ([facility]) 2.9 1.5 - 4.5 g/dL 07/05/2024 7:10 AM CDT [facility] Bilirubin Total ([facility]) 0.3 0.0 - 1.2 mg/dL 07/05/2024 7:10 AM CDT [facility] Alkaline Phosphatase ([facility]) 104 44 - 121 IU/L 07/05/2024 7:10 AM CDT [facility] AST (SGOT) ([facility]) 41(H) 0 - 40 IU/L 07/05/2024 7:10 AM CDT [facility] ALT (SGPT) ([facility]) 53(H) 0 - 44 IU/L 07/05/2024 7:10 AM CDT [facility] Blood Venipuncture / Unknown 07/04/2024 10:15 AM CDT 07/04/2024 10:15 AM CDT Narrative [facility] - 07/05/2024 7:10 AM CDT Performed at: 01 - [address] [id number] [employer] Professor: Eric Winkler MD, Phone: [phone] us Pricilla Sauceda MD [facility] ORDERABLES Final Resu lt [facility] [address] [place] [address] from Last 3 Months or Most Recently Relevant to Health Maintenance Insurance NON CONTRACT GENERIC Care Teams Entry Level Software Developer Relationship Specialty Start Date End Date Pricilla Sauceda MD PCP - General Internal Medicine 06/28/24
[2025-02-02 10:31] VITALS: BP 160/104; PULSE 82; RESP 20; TEMP 37.1; O2SAT 94; BMI 42.8
--- NOTE | 2025-02-02 12:13 | ED_ITS ---
HPI - Eye Problem General Chief complaint: Eye Problems Stated complaint: Scratch on left eye Time Seen by Provider: 02/02/25 12:04 History of Present Illness HPI Narrative: Patient is a 39-year-old gentleman who scratched in the eye last night by a little girl. He does not believe he has a foreign body but does feel like he has scratch crest service of his eye from her fingernail. He has no change in his vision. No mattering or discharge. No fevers no chills no night sweats no neurologic symptoms. Does have redness and mattering of his right eye. Related Data Home Medications ?Medication ?Instructions ?Recorded ?Confirmed albuterol sulfate PO 08/29/24 fluticasone propion-salmeterol inhalation 08/29/24 Allergies Allergy/AdvReac Type Severity Reaction Status Date / Time No Known Drug Allergies Allergy Verified 02/02/25 10:37 Review of Systems Status of ROS: Reports: 10 or more systems reviewed and unremarkable except as noted in History and below PFSH PFS Social History Non-prescribed substance use: denies use Exam Narrative: Exam Narrative: EXAM GENERAL: Patient appears comfortable and well. EYES: No scleral icterus. Does have redness and conjunctivitis noted in the right eye. No obvious sign of perforation or foreign body. LYMPH: No supraclavicular or cervical lymphadenopathy. SKIN: Visible skin seen during exam normal or with benign process only. EXT: No dependent lower extremity pedal edema. HEART: Regular rate and rhythm with no murmurs, rubs, or gallops. LUNGS: Clear to auscultation bilaterally with no crackles or wheezes. ABD: Soft, non tender, non distended. PSYCH: Good eye contact, speech is not pressured. Const: Vital Signs, click to edit/add: Vital Signs - 24 hr 02/02/25 10:31 Temperature 98.7 F Pulse Rate [Pulse Oximeter] 82 Respiratory Rate 20 Blood Pressure [Ri ght Upper Arm] 160/104 H Pulse Oximetry 94 Oxygen Delivery Me thod Room Air Course Vital Signs Vital signs: Initial Vital Signs Temperature 98.7 F 02/02/25 10:31 Temperature Source Oral 02/02/25 10:31 Pulse Rate 82 02/02/25 10:31 Pulse Rhythm Regular 02/02/25 10:31 Respiratory Rate 20 02/02/25 10:31 Blood Pressure 160/104 H 02/02/25 10:31 Blood Pressure Mean 122 H 02/02/25 10:31 Blood Pressure Position Sitting 02/02/25 10:31 Pulse Oximetry 94 02/02/25 10:31 Oxygen Delivery Method Room Air 02/02/25 10:31 Vital Signs Temperature 98.7 F 02/02/25 10:31 Pulse Rate 82 02/02/25 10:31 Respiratory Rate 20 02/02/25 10:31 Blood Pressure 160/104 H 02/02/25 10:31 Pulse Oximetry 94 02/02/25 10:31 Oxygen Delivery Method Room Air 02/02/25 10:31 Temperature 98.7 F 02/02/25 10:31 Pulse Rate 82 02/02/25 10:31 Respiratory Rate 20 02/02/25 10:31 Blood Pressure 160/104 H 02/02/25 10:31 Pulse Oximetry 94 02/02/25 10:31 Oxygen Delivery Method Room Air 02/02/25 10:31 MDM - Eye Problem MDM Narrative Medical decision making narrative: After explaining the risks and benefits I did provide local anesthesia with of tetracaine to the right eye. I then examined the I and I see no foreign bodies. The patient was discharged with gentamicin drops 2 drops 4 times a day until gone. Patient will take Tylenol Motrin rest and avoid any further contact with his right eye while anesthesia is in place. Discharge Plan Discharge Clinical Impression: Corneal abrasion Patient Disposition: Home, Self-Care Condition: Stable Instructions: Corneal Abrasion (ED) Additional Instructions: Gentamicin drops as direct Follow-up with your doctor as needed. Prescriptions: No Action albuterol sulfate PO fluticasone propion-salmeterol [Advair Diskus] inhalation Follow Up/Referrals: Provider,Not a Local [Primary Care Provider, Family Practice] Stand Alone Forms: [place] [employer] Info Instructions
== END 2025-02-02 12:32 | disposition home or self-care (01) ==
LOC: ED 12:27
PROVIDERS: Emergency Provider Internal Medicine
DX: S05.02XA Injury of conjunctiva and corneal abrasion without foreign body, left eye, initial encounter (principal); W50.4XXA Accidental scratch by another person, initial encounter
CPT/HCPCS: 99283; A9270